=== PATIENT | male | born 1945 | race Caucasian/White ===

== ENCOUNTER 2016-12-21 08:30 | Emergency (ER) | payer MEDICARE, OTHER ==
[2016-12-21] MEDS ORDERED: PHENAZOPYRIDINE HCL 200 MG TABLET PO ONE (08:55)
--- NOTE | 2016-12-21 08:59 | ER Document Report ---
ED GI/ - General Mode of Arrival: Ambulatory Information source: Patient TRAVEL OUTSIDE OF THE [place] IN LAST 30 DAYS: No - HPI Patient complains to provider of: Dysuria Onset: Other - 3 days agp Associated symptoms: Other - see notes above - General Chief Complaint: Pain With Urination Stated Complaint: PAINFUL URINATION Time Seen by Provider: 12/21/16 08:47 Notes: 71 year old male with history of hypertension, hyperlipidemia, CABG x4 (2011), and BPH presents to the ED complaining of dysuria and burning with urination that started 3 days ago. Patient reports that he had a Urolift procedure performed on 12/15/2016. Patient also complains of foul smelling urine that started 3 days ago. Patient is currently on Xarelto. (CARMEN SALAS) - Related Data Allergies/Adverse Reactions: No Known Allergies Allergy (Unverified 06/20/14 07:03) Past Medical History - General Information source: Patient - Social History Smoking Status: Never Smoker Frequency of alcohol use: None Family History: Reviewed & Not Pertinent - Past Medical History Cardiac Medical History: Reports: Hx Coronary Artery Disease, Hx Hypercholesterolemia, Hx Hypertension Renal/ Medical History: Reports: Hx Benign Prostatic Hyperplasia. Denies: Hx Peritoneal Dialysis Past Surgical History: Reports: Hx Coronary Artery Bypass Graft - x4 2011 Physical Exam - General General appearance: Alert In distress: None - HEENT Head: Normocephalic, Atraumatic Eyes: Normal Extraocular movements intact: Yes Pupils: PERRL - Respiratory Respiratory status: No respiratory distress - Cardiovascular Rhythm: Irregularly irregular, Tachycardia - Abdominal Inspection: Normal - Back Back: Normal - Extremities General upper extremity: Normal inspection, Normal ROM General lower extremity: Normal inspection, Normal ROM - Neurological Neuro grossly intact: Yes - Psychological Associated symptoms: Normal affect, Normal mood - Skin Skin Temperature: Warm Skin Moisture: Dry Skin Color: Normal Course - Re-evaluation Re-evalutation: 12/21/16 09:47 Patient reports when he gave us urine specimen he felt like he could not fully empty his bladder. He later went and had a bowel movement and then urinated quite a lot completely emptying his bladder. I discussed the urinalysis findings with the patient. He decided he would like to go with antibiotic treatment and Pyridium and if he is not improved by tomorrow he will return to [place] to follow-up with his urologist. (SIOBHAN WATSON) - Vital Signs Vital signs: Temp Pulse Resp BP Pulse Ox 97.9 F 130 H 19 153/103 H 97 12/21/16 08:37 12/21/16 08:37 12/21/16 08:37 12/21/16 08:37 12/21/16 08:37 - Laboratory Laboratory results interpreted by me: 12/21/16 08:48 Urine Blood SMALL H Discharge - Discharge Clinical Impression: Dysuria Condition: Stable Disposition: HOME, SELF-CARE Additional Instructions: Urinary Tract Infection: Your evaluation suggests that you have a urinary tract infection. This is due to germs growing in the bladder. This is a common problem. This infection usually responds quickly to antibiotics. Your antibiotic should be taken exactly as prescribed. Drink plenty of fluids -- three to four quarts a day. Occasionally, a bladder anesthetic will be prescribed to help stop the feeling of urgency until the antibiotic has a chance to clear the infection. This may cause your urine to be dark orange. Certain urine infections require a culture. If the doctor obtained a culture, the results will be back in two days. You should call to see if a change in treatment is needed. A repeat urinalysis after you finish treatment is often recommended. The physician will let you know if further testing is required. Call the doctor if you develop fever, chills, flank pain, inability to urinate, or blood in the urine. TAKE THE MEDICATIONS PRESCRIBED. DRINK PLENTY OF FLUIDS. FOLLOW UP WITH YOUR UROLOGIST IF NOT IMPROVING. RETURN TO THE EMERGENCY ROOM IF ANY NEW OR WORSENING SYMPTOMS. Prescriptions: Ciprofloxacin HCl [Cipro 500 mg Tablet] 500 mg PO BID #10 tablet Phenazopyridine HCl [Pyridium 200 mg Tablet] 200 mg PO TID #8 tablet Scribe Attestation: 12/21/16 09:51 I personally performed the services described in the documentation, reviewed and edited the documentation which was dictated to the scribe in my presence, and it accurately records my words and actions. (SIOBHAN WATSON) Scribe Documentation - Scribe Written by Nyla:: Nyla Wyatt, 12/21/2016 0859 acting as scribe for :: Aundrea
[2016-12-21 09:25] LABS: APPEARANCE,URINE CLEAR; BILIRUBIN,URINE NEGATIVE (NEGATIVE); GLUCOSE, URINE NEGATIVE (NEGATIVE); KETONES,URINE NEGATIVE (NEGATIVE); LEUKOCYTE ESTERASE,URINE NEGATIVE (NEGATIVE); NITRITE,URINE NEGATIVE (NEGATIVE); PROTEIN,URINE NEGATIVE (NEGATIVE); UROBILINOGEN,URINE NEGATIVE mg/dL (<2.0)
[2016-12-21] MEDS ORDERED: CIPROFLOXACIN HCL 500 MG TABLET PO ONE (09:48)
[2016-12-21 10:07] VITALS: BP 148/92
== END 2016-12-21 10:07 | disposition home or self-care (01) ==
LOC: ER 08:30
DX: R30.0 Dysuria (principal); N40.0 Benign prostatic hyperplasia without lower urinary tract symptoms; Z98.890 Other specified postprocedural states; R39.89 Other symptoms and signs involving the genitourinary system; R00.0 Tachycardia, unspecified; I25.10 Atherosclerotic heart disease of native coronary artery without angina pectoris; I10 Essential (primary) hypertension; Z95.1 Presence of aortocoronary bypass graft; Z79.01 Long term (current) use of anticoagulants
CPT/HCPCS: 99283; 87086; 81001; A9270; J3490

== ENCOUNTER 2020-07-04 07:52 | Emergency (ER) | payer OTHER ==
[2020-07-04] MEDS ORDERED: ONDANSETRON HCL INJ/PF 4 MG/2 ML SDV IV ONE ×2 (08:35→14:33)
[2020-07-04] MEDS ORDERED: MORPHINE SULFATE 10 MG/ML INJ IV ONE ×2 (08:35→14:33)
--- NOTE | 2020-07-04 08:52 | ER Document Report ---
Entered by MELANIA RANGEL SCRIBE 07/04/20 0828 Acting as scribe for:SIOBHAN WATSON MD ED GI/ - General Chief Complaint: Testicular Swelling Stated Complaint: TESTICULAR PROBLEM Time Seen by Provider: 07/04/20 08:22 Primary Care Provider: MELANI,NO [Primary Care Provider] - Follow up as needed Mode of Arrival: Ambulatory Information source: Patient Notes: This 75 year old male patient presents to the ED today with complaints of right testicular pain and swelling that started x2 days ago. Patient states that the right testicle is x5 times bigger than the left. Denies trouble urinating. TRAVEL OUTSIDE OF THE [place] IN LAST 30 DAYS: No - Related Data Allergies/Adverse Reactions: No Known Allergies Allergy (Unverified 06/20/14 07:03) Past Medical History - General Information source: Patient, [facility] Records - Social History Smoking Status: Never Smoker Cigarette use (# per day): No Chew tobacco use (# tins/day): No Smoking Education Provided: No Frequency of alcohol use: Occasional Drug Abuse: None Lives with: Spouse/Significant other Family History: Reviewed & Not Pertinent - Past Medical History Cardiac Medical History: Reports: Hx Atrial Fibrillation, Hx Coronary Artery Disease, Hx Hypercholesterolemia, Hx Hypertension Renal/ Medical History: Reports: Hx Benign Prostatic Hyperplasia Past Surgical History: Reports: Hx Cardiac Surgery - bypass, Hx Coronary Artery Bypass Graft - 4-vessel, 2011, Hx Genitourinary Surgery - Urolift, 12/15/2016 Review of Systems - Review of Systems Constitutional: No symptoms reported EENT: No symptoms reported Cardiovascular: No symptoms reported Respiratory: No symptoms reported Gastrointestinal: No symptoms reported Genitourinary: See HPI. denies: Dysuria Male Genitourinary: See HPI, Testicular pain - and swelling Musculoskeletal: No symptoms reported Skin: No symptoms reported Hematologic/Lymphatic: No symptoms reported Neurological/Psychological: No symptoms reported -: Yes All other systems reviewed and negative Physical Exam - Vital signs Vitals: Temp Pulse Resp BP Pulse Ox 98.5 F 77 18 140/65 H 96 07/04/20 08:00 07/04/20 08:00 07/04/20 08:00 07/04/20 08:00 07/04/20 08:00 - General General appearance: Alert In distress: None - HEENT Head: Normocephalic, Atraumatic Eyes: Normal Pupils: PERRL - Respiratory Respiratory status: No respiratory distress Chest status: Nontender Breath sounds: Normal Chest palpation: Normal - Cardiovascular Rhythm: Regular Heart sounds: Normal auscultation Murmur: No Friction rub: No Gallop: None auscultated - Abdominal Inspection: Normal Distension: No distension Bowel sounds: Normal Tenderness: Nontender - Abdomen soft Organomegaly: No organomegaly - Genitourinary Notes: On the right testicle there is a 15 x 6 cm mass that is tender to palpation with erythema to the scrotum. There is some scrotal edema noted to left testicle. - Back Back: Normal, Nontender - Extremities General upper extremity: Normal inspection General lower extremity: Normal inspection. No: Edema - Neurological Neuro grossly intact: Yes Orientation: AAOx4 Wells Coma Scale Eye Opening: Spontaneous [place]a Coma Scale Verbal: Oriented [place] Coma Scale Motor: Obeys Commands Talya Coma Scale Total: 15 - Psychological Associated symptoms: Normal affect, Normal mood - Skin Skin Temperature: Warm Skin Moisture: Dry Skin Color: Normal Course - Vital Signs Vital signs: Temp Pulse Resp BP Pulse Ox 100.8 F H 75 18 143/74 H 96 07/04/20 14:35 07/04/20 14:35 07/04/20 14:35 07/04/20 14:35 07/04/20 14:35 - Laboratory Result Diagrams: 07/04/20 08:56 07/04/20 08:56 Laboratory results interpreted by me: 07/04/20 07/04/20 07/04/20 08:18 08:56 08:56 WBC 16.0 H Lymph % (Auto) 7.0 L Absolute Neuts (auto) 12.8 H Absolute Monos (auto) 1.9 H Seg Neutrophils % 80.5 H Sodium 136.1 L Glucose 161 H AST 16 L Urine Protein 30 H Urine Ketones 20 H Urine Blood SMALL H Urine Nitrite POSITIVE H Ur Leukocyte Esterase LARGE H Discharge - Discharge Clinical Impression: Cellulitis of scrotum, Scrotal abscess, Hydrocele of testis Condition: Stable Disposition: HOME, SELF-CARE Additional Instructions: Hydrocele You have been diagnosed as having a hydrocele. The sac that holds the testicles is called the scrotum. A hydrocele is usually a painless collection of fluid in the membrane that covers the testicle(s). This may be present at or develop later on in life. The cause is usually unknown. In infants a hydrocele can be due to a miscommunication of the fluid surrounding the testes. In adults a hydrocele may form due to injury or inflammation of surrounding structures. Most hydroceles require no treatment, and usually resolve on their own. However, sometimes surgical intervention is recommended for recurrent, or for unusually large hydroceles. The surgery to fix a hydrocele is a minor procedure and usually takes about 1 and 1/2 hours. Cellulitis You have an infection of your skin and underlying soft tissues called cellulitis. This is due to bacteria, which can enter through any break in the skin, or even through an irritated hair follicle. Untreated, cellulitis will usually worsen. Antibiotics are required. Usually, warm packs or warm soaks, and elevation of the infected area are recommended. You should start getting better within 24 to 36 hours. Most infections respond quickly to the right medication. Follow-up care is important, however, to check for abscess (boil) formation, unsuspected foreign body, or resistant infection. If you develop fever, chills, or if the area of infection is becoming rapidly more swollen or painful, call the doctor at once. Abscess You have an abscess in the right scrotal tissues. If you develop fever, chilling, worsening pain, or increasing swelling in the area, call the doctor or return immediately. Take the Cipro twice daily, your first dose will be tonight as you have already received a dose here in the emergency room. Take the Percocet as prescribed 1 tablet every 4-6 hours as needed for pain. Use scrotal support and limit walking. Soaking in warm tub of water, or warm soaks will make the area feel better. Follow-up with your urologist next week for recheck. RETURN TO THE EMERGENCY ROOM IF ANY NEW OR WORSENING SYMPTOMS--including increased swelling, worsening pain, fever, chills, or nausea. Prescriptions: Ciprofloxacin HCl [Cipro 500 mg Tablet] 500 mg PO BID #20 tablet Oxycodone HCl/Acetaminophen [Percocet 5-325 mg Tablet] 1 tab PO ASDIR PRN #15 tablet PRN Reason: Referrals: LOCALMD,NO [Primary Care Provider] - Follow up as needed I personally performed the services described in the documentation, reviewed and edited the documentation which was dictated to the scribe in my presence, and it accurately records my words and actions.
[2020-07-04 09:27] LABS: ABSOLUTE LYMPHOCYTES (AUTO) 1.1 10^3/uL (0.5-4.7); ABSOLUTE MONOCYTES (AUTO) 1.9 10^3/uL (0.1-1.4); ABSOLUTE NEUT (AUTO) 12.8 10^3/uL (1.7-8.2); BASOPHILS % (AUTO) 0.2 % (0-2); EOSINOPHILS % (AUTO) 0.1 % (0-6); HEMOGLOBIN 14.7 g/dL (13.5-17.0); MEAN CORPUSCULAR HEMOGLOBIN 31.2 pg (27.0-33.4); MEAN CORPUSCULAR HGB CONC 34.1 g/dL (32.0-36.0); MEAN CORPUSCULAR VOLUME 91 fl (80-97); MONOCYTES % (AUTO) 12.2 % (3-13); PLATELET COUNT 226 10^3/uL (150-450); RED CELL DISTRIBUTION WIDTH 13.4 % (11.5-14.0); SEGMENTED NEUTROPHILS % (AUTO) 80.5 % (42-78); TOTAL CELLS COUNTED % (AUTO) 100 %
[2020-07-04 09:35] LABS: APPEARANCE,URINE SLIGHTLY-CLOUDY; BILIRUBIN,URINE NEGATIVE (NEGATIVE); COLOR,URINE AMBER; GLUCOSE, URINE NEGATIVE (NEGATIVE); KETONES,URINE 20 mg/dL (NEGATIVE); LEUKOCYTE ESTERASE,URINE LARGE (NEGATIVE); NITRITE,URINE POSITIVE (NEGATIVE); PROTEIN,URINE 30 mg/dL (NEGATIVE); URINE SPECIFIC GRAVITY 1.025; UROBILINOGEN,URINE NEGATIVE mg/dL (<2.0)
[2020-07-04 09:41] LABS: ALBUMIN 3.6 g/dL (3.5-5.0); ALKALINE PHOSPHATASE 65 U/L (38-126); ANION GAP 10 (5-19); ASPARTATE AMINO TRANSFERASE 16 U/L (17-59); BILIRUBIN,DIRECT 0.1 mg/dL (0.0-0.4); BILIRUBIN,TOTAL 1.2 mg/dL (0.2-1.3); BLOOD UREA NITROGEN 13 mg/dL (7-20); CALCIUM 9.2 mg/dL (8.4-10.2); CARBON DIOXIDE 24 mmol/L (22-30); CHLORIDE 102 mmol/L (98-107); GLUCOSE 161 mg/dL (75-110); POTASSIUM 4.3 mmol/L (3.6-5.0); TOTAL PROTEIN 6.6 g/dL (6.3-8.2)
--- NOTE | 2020-07-04 11:18 | RADIOLOGY REPORT (SQ) ---
EXAM DESCRIPTION: U/S SCROTUM W/DOPPLER IMAGES COMPLETED DATE/TIME: 07/04/2020 10:50 am REASON FOR STUDY: right test swelling COMPARISON: None. TECHNIQUE: Static and realtime griffith scale imaging of the scrotum and testes. Selected color Doppler and spectral images recorded to document blood flow. LIMITATIONS: None. FINDINGS: RIGHT: TESTICLE: Normal size measuring 4.4 x 3.6 x 3.2 cm. Normal echotexture. Normal blood flow. No mass. EPIDIDYMIS: Unremarkable in size and echogenicity. Epididymal head measures 1.6 cm. HYDROCELE OR VARICOCELE: Complex cystic lesion within the right superior scrotum measuring 5.1 x 3.9 x 3.1 cm. Additional small complex hydrocele around the testicular parenchyma. Mild dilation of the veins measuring up to 4 mm, possibly related to above findings. HERNIA OR EXTRA-TESTICULAR MASS: No. OTHER: Scrotal skin thickening. LEFT: TESTICLE: Normal size measuring 4.7 x 3.3 x 2.4 cm. Normal echotexture. Normal blood flow. No mass. EPIDIDYMIS: Unremarkable in size. Scattered epididymal cysts, largest measuring 5 mm. Epididymal he ad measures 1.1 cm. HYDROCELE OR VARICOCELE: Left-sided hydrocele with debris. HERNIA OR EXTRA-TESTICULAR MASS: No. OTHER: No other significant finding. IMPRESSION: 1. Scrotal skin and subcutaneous thickening on the right with complex bilateral hydroce les, right greater than left, suggestive of cellulitis. Additional more focal complex collection wit hin the superior right scrotum measuring 5.1 x 3.9 x 3.1 cm, possibly loculated fluid or developing p yocele/scrotal abscess. 2. Unremarkable testicular parenchyma bilaterally. TECHNICAL DOCUMENTATION: JOB ID: [id number] [employer]- All Rights Reserved Reading location - IP/workstation name: [email or web address]
[2020-07-04] MEDS ORDERED: CIPROFLOXACIN HCL 750 MG TABLET PO ONE (14:21)
[2020-07-04 14:36] VITALS: BP 143/74
== END 2020-07-04 14:54 | disposition home or self-care (01) ==
LOC: ER 07:52
DX: N49.2 Inflammatory disorders of scrotum (principal); N43.3 Hydrocele, unspecified; N50.89 Other specified disorders of the male genital organs; N50.811 Right testicular pain; I48.91 Unspecified atrial fibrillation; I25.10 Atherosclerotic heart disease of native coronary artery without angina pectoris
CPT/HCPCS: 96376; 99285; 96374; 96375; 36415; 87086; 85025; 87088; 80053; 81001; 87186; 76870; 93976; J2270; J2405; J3490